=== PATIENT | male | born 1930 | race Caucasian/White ===

== ENCOUNTER 2017-03-31 11:40 | Emergency (ER) | payer MEDICARE, OTHER ==
[~2017-03-31] VITALS: Ht 157.5 cm; Wt 61.4 kg
[~2017-03-31 11:40] MED LIST: ALPR2TAB3 PO; AMMO12CR10 TOP; ASPI81TA82 PO; CHOL1TAB6 PO; DOCU1CAP39 PO; LOSA50TA PO; PAXI40TA PO; TERA5CAP3 PO; ULTR50TA PO
[2017-03-31 11:42] VITALS: BP 144/82; PULSE 82; RESP 18; TEMP 97.9; O2SAT 97
[2017-03-31 12:55] LABS: AUTOMATED NEUTROPHIL # 2.4 TH/MM3 (1.8-7.7); BASOPHIL % 0.8 % (0.0-2.0); EOSINOPHIL # 0.1 TH/MM3 (0-0.4); EOSINOPHIL % 1.6 % (0.0-4.0); HEMATOCRIT 33.1 % (39.0-51.0); HEMOGLOBIN 11.2 GM/DL (13.0-17.0); LYMPH % 16.8 % (9.0-44.0); LYMPHOCYTE # 0.6 TH/MM3 (1.0-4.8); MEAN CELL VOLUME 92.8 FL (80.0-100.0); MEAN CORPUSCULAR HEMOGLOBIN 31.4 PG (27.0-34.0); MEAN CORPUSCULAR HGB CONC 33.9 % (32.0-36.0); MEAN PLATELET VOLUME 9.6 FL (7.0-11.0); MONO % 9.4 % (0.0-8.0); MONOCYTE # 0.3 TH/MM3 (0-0.9); NEUT % 71.4 % (16.0-70.0); PLATELET COUNT 141 TH/MM3 (150-450); RED BLOOD COUNT 3.56 MIL/MM3 (4.50-5.90); RED CELL DISTRIBUTION WIDTH 14.2 % (11.6-17.2); WHITE BLOOD COUNT 3.3 TH/MM3 (4.0-11.0)
[2017-03-31 13:03] LABS: INTERNATIONAL NORMALIZED RATIO 1.1 RATIO; PROTHROMBIN TIME - PATIENT 10.7 SEC (9.8-11.6)
[2017-03-31 13:09] LABS: BILIRUBIN, URINE NEG (NEG); BLOOD, URINE NEG (NEG); GLUCOSE,URINE NEG (NEG); HYALINE CAST, URINE 4 /lpf (RARE); KETONE, URINE NEG (NEG); MUCUS URINE FEW /lpf (OCC); NITRITE,URINE NEG (NEG); PH, URINE 5.5 (5.0-8.5); SQUAMOUS EPITHELIAL CELL URINE <1 /hpf (0-5); TRANSITIONAL EPI CELLS, URINE <1 /hpf; URINE COLOR YELLOW (YELLW/STRAW); URINE LEUKOCYTE ESTERASE TRACE (NEG)
[2017-03-31 13:09] LABS: ALBUMIN 3.8 GM/DL (3.4-5.0); ALT (GPT) 31 U/L (12-78); AST (GOT) 32 U/L (15-37); BICARBONATE 26.3 MEQ/L (21.0-32.0); BLOOD UREA NITROGEN 24 MG/DL (7-18); CALCIUM 8.9 MG/DL (8.5-10.1); CHLORIDE 107 MEQ/L (98-107); CREATININE 1.02 MG/DL (0.60-1.30); GLOMERULAR FILTRATION RATE 69 ML/MIN (>89); GLUCOSE,RANDOM 93 MG/DL (74-106); LIPASE 288 U/L (73-393); SODIUM (NA) 140 MEQ/L (136-145)
[2017-03-31 13:11] LABS: ALKALINE PHOSPHATASE 98 U/L (45-117); TOTAL BILIRUBIN ADULT 0.7 MG/DL (0.2-1.0); TOTAL PROTEIN 7.8 GM/DL (6.4-8.2)
[2017-03-31] MEDS ORDERED: IOHEXOL 350 MG/ML 10 ML VIAL (for RAD DIAG) IVCONTRAST ONE (13:17)
[2017-03-31] MEDS ORDERED: TERA5CAP3 PO (15:07)
[2017-03-31] MEDS ORDERED: MULTTAB67 PO (15:07)
[2017-03-31] MEDS ORDERED: D200CAP PO (15:07)
[2017-03-31] MEDS ORDERED: LOSA100T PO (15:07)
[2017-03-31] MEDS ORDERED: ROSU1TAB4 PO (15:07)
[2017-03-31] MEDS ORDERED: OCUVTAB PO (15:07)
[2017-03-31] MEDS ORDERED: COLC0.6T PO (15:07)
[2017-03-31] MEDS ORDERED: ASPI81TA23 PO (15:07)
[2017-03-31] MEDS ORDERED: PAXI40TA9 (15:07)
[2017-03-31] MEDS ORDERED: COEN400C (15:07)
--- NOTE | 2017-03-31 15:10 | PD ---
HPI Chief Complaint: GI Complaint Time Seen by Provider: 13:51 Travel History International Travel<30 days: No Contact w/Intl Traveler<30days: No Traveled to known affect area: No History of Present Illness HPI 87-year-old male that presents to the ED for evaluation of lower GI bleed. Per patient has had painless rectal bleeding for the past couple of days. Per patient he went to an urgent care who recommended that he comes here. He denies any pain. He states that he has a history of diverticulitis in the past and feels like is the same. Per patient couple years ago he was here and he had a colonoscopy and he had resolution of his symptoms. Per patient he was given pills to make it better. he states that he is hoping for the same. Denies any nausea or vomiting. No diarrhea. Per patient and the blood is minimal. Denies taking any blood thinners other than aspirin. Denies any chest pain or shortness of breath. No urinary symptoms. No pain on the abdomen. Per patient he has not GI doctor at this time. Multiple allergies to different medications. PFSH Past Medical History Anxiety: Yes Cancer: No Cardiovascular Problems: Yes (HTN, hyperlipidemia) Coronary Artery Disease: Yes (CABG X5) Diminished Hearing: Yes (BILATERAL) Endocrine: No Genitourinary: Yes Immune Disorder: No Musculoskeletal: Yes (L KNEE REPLACEMENT) Neurologic: No Psychiatric: Yes (PTSD) Reproductive: No Respiratory: No Immunizations Current: Yes Tetanus Vaccination: Unknown ?: Not Past Surgical History Coronary Artery Bypass Graft: Yes Joint Replacement: Yes (KNEE REPLACEMENT) Pacemaker: No Other Surgery: Yes Social History Alcohol Use: Yes (2 DRINKS DAILY (2 BEERS OR 2 SHOTS WHISKEY)) Tobacco Use: No Substance Use: No Allergies-Medications (Allergen,Severity, Reaction): Coded Allergies: cilostazol (Unverified Allergy, Intermediate, 03/31/17) clarithromycin (Unverified Allergy, Intermediate, 03/31/17) clopidogrel (Unverified Allergy, Intermediate, 03/31/17) diclofenac (Unverified Allergy, Intermediate, 03/31/17) lisinopril (Unverified Allergy, Intermediate, 03/31/17) pravastatin (Unverified Allergy, Intermediate, 03/31/17) sertraline (Unverified Allergy, Intermediate, 03/31/17) Reported Meds & Prescriptions Reported Meds & Active Scripts Active Miralax Powder (Polyethylene Glycol 3350 Powder) 17 Gm Powd 17 Gm PO DAILY Mix and dissolve one measuring cap-ful (17 grams) in water or juice. Cipro (Ciprofloxacin HCl) 500 Mg Tab 500 Mg PO BID 10 Days Flagyl (Metronidazole) 500 Mg Tab 500 Mg PO BID 10 Days Reported Aspirin EC (Aspirin) 81 Mg Tabdr 81 Mg PO DAILY Losartan (Losartan Potassium) 100 Mg Tab 100 Mg PO DAILY Paxil (Paroxetine HCl) 40 Mg Tablet Multiple Vitamin 1 Tab 1 Tab PO DAILY D3 Super Strength (Cholecalciferol) 2,000 Unit Cap 1,000 Units PO DAILY Coq-10 (Coenzyme Q10 (Ubidecarenone)) 400 Mg Cap 200 Terazosin (Terazosin HCl) 5 Mg Cap 5 Mg PO HS Colcrys (Colchicine) 0.6 Mg Tab 0.6 Mg PO BID Ocuvite (Multiple Vitamins W/ Minerals) 1 Tab 1 Tab PO DAILY Rosuvastatin (Rosuvastatin Calcium) 5 Mg Tab 5 Mg PO HS Review of Systems Except as stated in HPI: all other systems reviewed are Neg Physical Exam Narrative GENERAL: SKIN: Warm and dry. HEAD: Atraumatic. Normocephalic. EYES: Pupils equal and round. No scleral icterus. No injection or drainage. ENT: No nasal bleeding or discharge. Mucous membranes pink and moist. Tongue is midline. No uvula deviation. NECK: Trachea midline. No JVD. CARDIOVASCULAR: Regular rate and rhythm. No murmurs, S3, S4. RESPIRATORY: No accessory muscle use. Clear to auscultation. Breath sounds equal bilaterally. GASTROINTESTINAL: Abdomen soft, non-tender, nondistended. Hepatic and splenic margins not palpable. Rectal exam: The wheel female nurse present. Patient has some moisés blood noted on test but patient also has what appears to be internal hemorrhoids likely stage I. No sign of external hemorrhoids or impaction. No sign of infection. MUSCULOSKELETAL: Extremities without clubbing, cyanosis, or edema. No obvious deformities. Full range of motion of the upper and lower extremities bilaterally. 2+ pulses bilaterally. NEUROLOGICAL: Awake and alert. No obvious cranial nerve deficits. Motor grossly within normal limits. Five out of 5 muscle strength in the arms and legs. Normal speech. PSYCHIATRIC: Appropriate mood and affect; insight and judgment normal. Data Data Last Documented VS Vital Signs Date Time Temp Pulse Resp B/P (MAP) Pulse Ox O2 Delivery O2 Flow Rate FiO2 03/31/17 11:42 97.9 82 18 144/82 (102) 97 Orders Orders Complete Blood Count With Diff (03/31/17 12:00) Comprehensive Metabolic Panel (03/31/17 12:00) Lipase (03/31/17 12:00) Prothrombin Time / Inr (Pt) (03/31/17 12:00) Act Partial Throm Time (Ptt) (03/31/17 12:00) Urinalysis - C+S If Indicated (03/31/17 12:00) Type And Screen (03/31/17 12:00) Electrocardiogram (03/31/17 ) Ct Abd/Pel W Iv Contrast(Rout) (03/31/17 ) Iohexol 350 Inj (Omnipaque 350 Inj) (03/31/17 13:17) Ed Discharge Order (03/31/17 16:08) Labs Laboratory Tests Test 03/31/17 12:35 03/31/17 12:46 White Blood Count 3.3 TH/MM3 Red Blood Count 3.56 MIL/MM3 Hemoglobin 11.2 GM/DL Hematocrit 33.1 % Mean Corpuscular Volume 92.8 FL Mean Corpuscular Hemoglobin 31.4 PG Mean Corpuscular Hemoglobin Concent 33.9 % Red Cell Distribution Width 14.2 % Platelet Count 141 TH/MM3 Mean Platelet Volume 9.6 FL Neutrophils (%) (Auto) 71.4 % Lymphocytes (%) (Auto) 16.8 % Monocytes (%) (Auto) 9.4 % Eosinophils (%) (Auto) 1.6 % Basophils (%) (Auto) 0.8 % Neutrophils # (Auto) 2.4 TH/MM3 Lymphocytes # (Auto) 0.6 TH/MM3 Monocytes # (Auto) 0.3 TH/MM3 Eosinophils # (Auto) 0.1 TH/MM3 Basophils # (Auto) 0.0 TH/MM3 CBC Comment DIFF FINAL Differential Comment Prothrombin Time 10.7 SEC Prothromb Time International Ratio 1.1 RATIO Activated Partial Thromboplast Time 25.9 SEC Blood Urea Nitrogen 24 MG/DL Creatinine 1.02 MG/DL Random Glucose 93 MG/DL Total Protein 7.8 GM/DL Albumin 3.8 GM/DL Calcium Level 8.9 MG/DL Alkaline Phosphatase 98 U/L Aspartate Amino Transf (AST/SGOT) 32 U/L Alanine Aminotransferase (ALT/SGPT) 31 U/L Total Bilirubin 0.7 MG/DL Sodium Level 140 MEQ/L Potassium Level 4.1 MEQ/L Chloride Level 107 MEQ/L Carbon Dioxide Level 26.3 MEQ/L Anion Gap 7 MEQ/L Estimat Glomerular Filtration Rate 69 ML/MIN Lipase 288 U/L Urine Color YELLOW Urine Turbidity CLEAR Urine pH 5.5 Urine Specific [place] 1.019 Urine Protein TRACE mg/dL Urine Glucose (UA) NEG mg/dL Urine Ketones NEG mg/dL Urine Occult Blood NEG Urine Nitrite NEG Urine Bilirubin NEG Urine Urobilinogen LESS THAN 2.0 MG/DL Urine Leukocyte Esterase TRACE Urine RBC 2 /hpf Urine WBC 4 /hpf Urine Squamous Epithelial Cells <1 /hpf Urine Transitional Epithelial Cells <1 /hpf Urine Hyaline Casts 4 /lpf Urine Mucus FEW /lpf Microscopic Urinalysis Comment CULT NOT INDICATED MDM Medical Decision Making Medical Screen Exam Complete: Yes Emergency Medical Condition: Yes Medical Record Reviewed: Yes Interpretation(s) CBC & BMP Diagram 03/31/17 12:35 Total Protein 7.8, Albumin 3.8, Calcium Level 8.9, Alkaline Phosphatase 98, Aspartate Amino Transf (AST/SGOT) 32, Alanine Aminotransferase (ALT/SGPT) 31, Total Bilirubin 0.7 coags WNL Last Impressions Abdomen/Pelvis CT 03/31/17 0000 Signed Impressions: Service Date/Time: Friday, March 31, 2017 15:15 - CONCLUSION: 1. 4.5 cm infrarenal abdominal aortic aneurysm. 2. There is a moderate amount of stool within the ascending colon as well the sigmoid colon. There are scattered diverticuli but no definite inflammatory changes to indicate acute diverticulitis. 3. There are 3 small simple cysts within the liver. 4. Advanced degenerative changes within the lumbar spine. 5. Note is made of densely calcified atherosclerotic plaque in the mid segment of the SMA. Wiley Drew MD Differential Diagnosis Rectal bleeding versus lower GI bleed versus hemorrhoids versus diverticulitis Narrative Course 87-year-old male that presents to the ED for evaluation of rectal bleeding. Patient was properly examined and was found to have signs and symptoms concerning for hemorrhoids versus diverticulitis. Labs and imaging ordered. Labs and imaging were essentially unremarkable other than what appears to be moderate amount of stool on the CAT scan as well as a AAA that is not dissecting as well as no acute findings of diverticulitis was still possible. At this time will be treated as diverticulitis. From history and physical this is more likely internal hemorrhoids. Recommend close follow with GI. Patient was given information for local GI doctor. Patient was told that if anything worsens she is to come back. He will be started on Flagyl and Cipro to cover for diverticulitis which is still possible. Given a prescription for MiraLAX. Told to drink plenty of fluids. Follow with PCP. See ED worsening symptoms. [facility] Point of Care Internal Pos. & Neg. Controls: Passed Fecal Specimen Occult Blood: Positive Diagnosis Primary Impression: Lower GI bleed Additional Impression: Diverticulitis large intestine Qualified Codes: K57.33 - Diverticulitis of large intestine without perforation or abscess with bleeding Referrals: Bakari Sanchez MD, Saud El-sayed MD Patient Instructions: General Instructions Additional Instructions: Take medications as prescribed. Follow with PCP. See ED for worsening symptoms. You have an Abdominal aorta aneurysm of 4.5 cm that needs to be monitored by your doctors. Med/Other Pt SpecificInfo: Prescription(s) given Scripts Polyethylene Glycol 3350 Powder (Miralax Powder) 17 Gm Powd 17 GM PO DAILY for Constipation, #1 CAN 3 Refills Mix and dissolve one measuring cap-ful (17 grams) in water or juice. Prov: Dean Hernandez MD 03/31/17 Ciprofloxacin (Cipro) 500 Mg Tab 500 MG PO BID for Infection for 10 Days, #20 TAB 0 Refills Prov: Dean Hernandez MD 03/31/17 Metronidazole (Flagyl) 500 Mg Tab 500 MG PO BID for Infection for 10 Days, #20 TAB 0 Refills Prov: Dean Hernandez MD 03/31/17 Disposition: 01 DISCHARGE HOME Condition: Stable Brant Huff Mar 31, 2017 15:10
--- NOTE | 2017-03-31 15:47 | RADRPT ---
EXAM DATE/TIME: 03/31/2017 15:15 [facility] COMPARISON: No previous studies available for comparison. INDICATIONS : Lower abdominal pain with blood in stool. IV CONTRAST: 95 cc Omnipaque 350 (iohexol) IV ORAL CONTRAST: No oral contrast ingested. RADIATION DOSE: 6.67 CTDIvol (mGy) MEDICAL HISTORY : Cardiovascular disease. Diverticulitis. SURGICAL HISTORY : CABG ENCOUNTER: Initial ACUITY: 4 - 6 days PAIN SCALE: 5/10 LOCATION: Bilateral lower quadrant TECHNIQUE: Volumetric scanning of the abdomen and pelvis was performed. Using automated exposure control and ad justment of the mA and/or kV according to patient size, radiation dose was kept as low as reasonably achievable to obtain optimal diagnostic quality images. DICOM format image data is available electro nically for review and comparison. FINDINGS: The limited portion of the lung base visualized demonstrate COPD changes. There is a 6 mm nodule evid ent within the left lower lobe. Examination of the liver demonstrates 3 low attenuation lesions within the liver. The largest measure s 1.7 cm. These are most compatible with benign simple cysts. The spleen, pancreas, adrenal glands and kidneys are intact. Examination of the abdominal aorta demonstrates a 4.5 cm infrarenal abdominal aortic aneurysm. There is no retroperitoneal lymphadenopathy. The visualized loops of small and large bowel demonstrate a moderate amount of stool within the adjac ent colon but are otherwise intact. There is no free fluid within the pelvis. No iliac or inguinal adenopathy is seen. No free air or ashley e fluid is present. There are diverticuli diffusely throughout the sigmoid colon but no definite infl ammatory changes. The prostate is mildly enlarged. There are advanced degenerative changes throughout the lumbar spine. CONCLUSION: 1. 4.5 cm infrarenal abdominal aortic aneurysm. 2. There is a moderate amount of stool within the ascending colon as well the sigmoid colon. There ar e scattered diverticuli but no definite inflammatory changes to indicate acute diverticulitis. 3. There are 3 small simple cysts within the liver. 4. Advanced degenerative changes within the lumbar spine. 5. Note is made of densely calcified atherosclerotic plaque in the mid segment of the SMA. Wiley Drew MD on March 31, 2017 at 15:38 Board Certified Radiologist. This report was verified electronically.
[2017-03-31] MEDS ORDERED: METR-1 PO (16:08)
[2017-03-31] MEDS ORDERED: MIRA3350 PO (16:08)
[2017-03-31] MEDS ORDERED: CIPR-9 PO (16:08)
--- NOTE | 2017-04-01 19:34 | EKG ---
Date Performed: 03/31/2017 Time Performed: 12:37:07 PTAGE: 87 years EKG: Sinus rhythm WITH FIRST DEGREE AV BLOCK ST DEVIATION AND MODERATE T-WAVE ABNORMALITY, CONSIDER LATERAL ISCHEMIA. When compared to previous tracing, there has been an increase in The lateral T wave changes, but no o ther significant serial Change. ABNORMAL ECG PREVIOUS TRACING : 06/05/2014 10.37 DOCTOR: Salima Nunez Interpretating Date/Time 04/01/2017 19:33:07
== END 2017-03-31 16:41 | disposition home or self-care (01) ==
LOC: NEPE 11:40
DX: K92.2 Gastrointestinal hemorrhage, unspecified (principal); K57.32 Diverticulitis of large intestine without perforation or abscess without bleeding; R94.31 Abnormal electrocardiogram [ECG] [EKG]; I10 Essential (primary) hypertension; E78.5 Hyperlipidemia, unspecified
CPT/HCPCS: 74177; 80053; 81001; 83690; 85025; 85610; 85730; 86850; 86900; 86901; 93005; 99285; Q9967

== ENCOUNTER 2017-04-02 11:12 | Inpatient (IN) | payer MEDICARE, OTHER ==
[~2017-04-02] VITALS: Ht 157.5 cm; Wt 74.7 kg
[~2017-04-02 11:12] MED LIST changes: -ALPR2TAB3 PO; -AMMO12CR10 TOP; +ASPI81TA23 PO; -ASPI81TA82 PO; -CHOL1TAB6 PO; +CIPR-9 PO; +COEN400C; +COLC0.6T PO; +D200CAP PO; -DOCU1CAP39 PO; +LOSA100T PO; -LOSA50TA PO; +METR-1 PO; +MIRA3350 PO; +MULTTAB67 PO; +OCUVTAB PO; -PAXI40TA PO; +PAXI40TA9; +ROSU1TAB4 PO; -ULTR50TA PO
[2017-04-02 11:17] VITALS: BP 124/59; PULSE 80; RESP 17; TEMP 97.9; O2SAT 99
[2017-04-02 12:05] LABS: AUTOMATED NEUTROPHIL # 2.7 TH/MM3 (1.8-7.7); BASOPHIL % 0.5 % (0.0-2.0); EOSINOPHIL % 1.4 % (0.0-4.0); HEMATOCRIT 28.8 % (39.0-51.0); HEMOGLOBIN 9.4 GM/DL (13.0-17.0); LYMPH % 15.2 % (9.0-44.0); LYMPHOCYTE # 0.5 TH/MM3 (1.0-4.8); MEAN CORPUSCULAR HEMOGLOBIN 29.8 PG (27.0-34.0); MEAN CORPUSCULAR HGB CONC 32.8 % (32.0-36.0); MEAN PLATELET VOLUME 8.4 FL (7.0-11.0); MONO % 8.9 % (0.0-8.0); MONOCYTE # 0.3 TH/MM3 (0-0.9); PLATELET COUNT 144 TH/MM3 (150-450); RED BLOOD COUNT 3.17 MIL/MM3 (4.50-5.90); RED CELL DISTRIBUTION WIDTH 13.7 % (11.6-17.2); WHITE BLOOD COUNT 3.5 TH/MM3 (4.0-11.0)
[2017-04-02 12:15] LABS: CHLORIDE 104 MEQ/L (98-107); SODIUM (NA) 138 MEQ/L (136-145)
[2017-04-02 12:18] LABS: CALCIUM 8.4 MG/DL (8.5-10.1)
[2017-04-02 12:19] LABS: ALBUMIN 3.2 GM/DL (3.4-5.0); BICARBONATE 26.7 MEQ/L (21.0-32.0); BLOOD UREA NITROGEN 28 MG/DL (7-18); GLUCOSE,RANDOM 128 MG/DL (74-106); INTERNATIONAL NORMALIZED RATIO 1.1 RATIO; PROTHROMBIN TIME - PATIENT 11.4 SEC (9.8-11.6)
[2017-04-02 12:22] LABS: ALT (GPT) 26 U/L (12-78); AST (GOT) 38 U/L (15-37); GLOMERULAR FILTRATION RATE 57 ML/MIN (>89)
[2017-04-02 12:23] LABS: TOTAL BILIRUBIN ADULT 0.4 MG/DL (0.2-1.0); TOTAL PROTEIN 6.8 GM/DL (6.4-8.2)
[2017-04-02 12:25] LABS: ALKALINE PHOSPHATASE 80 U/L (45-117)
--- NOTE | 2017-04-02 12:38 | PD ---
HPI Chief Complaint: GI Complaint Time Seen by Provider: 11:23 Travel History International Travel<30 days: No Contact w/Intl Traveler<30days: No Traveled to known affect area: No History of Present Illness HPI This is an 87-year-old male who presents to the emergency department with bleeding from his rectum, constant, moderate severity having 3-4 episodes per day over the past week associated with lightheadedness and dizziness. The patient has a history of diverticulosis in the past. He does not follow with the GI doctor. PFSH Past Medical History Anxiety: Yes Cardiovascular Problems: Yes (HTN, hyperlipidemia) Coronary Artery Disease: Yes (CABG X5) Diminished Hearing: Yes (BILATERAL) Endocrine: No Gout: Yes Genitourinary: Yes Hypertension: Yes Immune Disorder: No Implanted Vascular Access Dvce: Yes Musculoskeletal: Yes (L KNEE REPLACEMENT) Neurologic: No Psychiatric: Yes (PTSD) Reproductive: No Respiratory: No Immunizations Current: Yes Tetanus Vaccination: < 5 Years Influenza Vaccination: Yes Past Surgical History Coronary Artery Bypass Graft: Yes Joint Replacement: Yes (KNEE REPLACEMENT) Pacemaker: No Other Surgery: Yes Social History Alcohol Use: Yes (2 DRINKS DAILY (2 BEERS OR 2 SHOTS WHISKEY) not any more) Tobacco Use: No Substance Use: No Allergies-Medications (Allergen,Severity, Reaction): Coded Allergies: cilostazol (Unverified Allergy, Intermediate, 04/02/17) clarithromycin (Unverified Allergy, Intermediate, 04/02/17) clopidogrel (Unverified Allergy, Intermediate, 04/02/17) diclofenac (Unverified Allergy, Intermediate, 04/02/17) lisinopril (Unverified Allergy, Intermediate, 04/02/17) pravastatin (Unverified Allergy, Intermediate, 04/02/17) sertraline (Unverified Allergy, Intermediate, 04/02/17) Reported Meds & Prescriptions Reported Meds & Active Scripts Active Miralax Powder (Polyethylene Glycol 3350 Powder) 17 Gm Powd 17 Gm PO DAILY Mix and dissolve one measuring cap-ful (17 grams) in water or juice. Cipro (Ciprofloxacin HCl) 500 Mg Tab 500 Mg PO BID 10 Days Flagyl (Metronidazole) 500 Mg Tab 500 Mg PO BID 10 Days Reported Aspirin EC (Aspirin) 81 Mg Tabdr 81 Mg PO DAILY Losartan (Losartan Potassium) 100 Mg Tab 100 Mg PO DAILY Paxil (Paroxetine HCl) 40 Mg Tablet Multiple Vitamin 1 Tab 1 Tab PO DAILY D3 Super Strength (Cholecalciferol) 2,000 Unit Cap 1,000 Units PO DAILY Coq-10 (Coenzyme Q10 (Ubidecarenone)) 400 Mg Cap 200 Terazosin (Terazosin HCl) 5 Mg Cap 5 Mg PO HS Colcrys (Colchicine) 0.6 Mg Tab 0.6 Mg PO BID Ocuvite (Multiple Vitamins W/ Minerals) 1 Tab 1 Tab PO DAILY Rosuvastatin (Rosuvastatin Calcium) 5 Mg Tab 5 Mg PO HS Review of Systems Except as stated in HPI: all other systems reviewed are Neg Physical Exam Narrative GENERAL:Well appearing, no acute distress SKIN: Pale HEAD: Atraumatic. Normocephalic. EYES: Pupils equal and round. No injection or drainage. ENT: Moist mucous membranes NECK: Trachea midline. CARDIOVASCULAR: Regular rate and rhythm. No murmur appreciated. RESPIRATORY: Clear to auscultation. Breath sounds equal bilaterally. GASTROINTESTINAL: Abdomen soft, non-tender, nondistended. MUSCULOSKELETAL: No obvious deformities. NEUROLOGICAL: Awake and alert. No obvious cranial nerve deficits. Moving all extremities. PSYCHIATRIC: Appropriate mood and affect; insight and judgment normal. Data Data Last Documented VS Vital Signs Date Time Temp Pulse Resp B/P (MAP) Pulse Ox O2 Delivery O2 Flow Rate FiO2 04/02/17 11:17 97.9 80 17 124/59 (80) 99 Orders Orders Complete Blood Count With Diff (04/02/17 11:23) Comprehensive Metabolic Panel (04/02/17 11:23) Act Partial Throm Time (Ptt) (04/02/17 11:23) Prothrombin Time / Inr (Pt) (04/02/17 11:23) Labs Laboratory Tests Test 04/02/17 11:55 White Blood Count 3.5 TH/MM3 Red Blood Count 3.17 MIL/MM3 Hemoglobin 9.4 GM/DL Hematocrit 28.8 % Mean Corpuscular Volume 91.0 FL Mean Corpuscular Hemoglobin 29.8 PG Mean Corpuscular Hemoglobin Concent 32.8 % Red Cell Distribution Width 13.7 % Platelet Count 144 TH/MM3 Mean Platelet Volume 8.4 FL Neutrophils (%) (Auto) 74.0 % Lymphocytes (%) (Auto) 15.2 % Monocytes (%) (Auto) 8.9 % Eosinophils (%) (Auto) 1.4 % Basophils (%) (Auto) 0.5 % Neutrophils # (Auto) 2.7 TH/MM3 Lymphocytes # (Auto) 0.5 TH/MM3 Monocytes # (Auto) 0.3 TH/MM3 Eosinophils # (Auto) 0.0 TH/MM3 Basophils # (Auto) 0.0 TH/MM3 CBC Comment DIFF FINAL Differential Comment Prothrombin Time 11.4 SEC Prothromb Time International Ratio 1.1 RATIO Activated Partial Thromboplast Time 26.1 SEC Blood Urea Nitrogen 28 MG/DL Creatinine 1.20 MG/DL Random Glucose 128 MG/DL Total Protein 6.8 GM/DL Albumin 3.2 GM/DL Calcium Level 8.4 MG/DL Alkaline Phosphatase 80 U/L Aspartate Amino Transf (AST/SGOT) 38 U/L Alanine Aminotransferase (ALT/SGPT) 26 U/L Total Bilirubin 0.4 MG/DL Sodium Level 138 MEQ/L Potassium Level 4.0 MEQ/L Chloride Level 104 MEQ/L Carbon Dioxide Level 26.7 MEQ/L Anion Gap 7 MEQ/L Estimat Glomerular Filtration Rate 57 ML/MIN [facility] Medical Decision Making Medical Screen Exam Complete: Yes Emergency Medical Condition: Yes Medical Record Reviewed: Yes (Patient was seen here at [facility] in 2014 and had a lower GI bleed attributed to diverticulosis) Differential Diagnosis Diverticulosis, hemorrhoids, colitis, AVM, anemia Narrative Course This is an 87-year-old male who presents to the emergency department with lower GI bleeding that has been going on for 1 week. His hemoglobin is 9.4 which is lower than 11.2 which it was in March. He is symptomatic with fatigue and lightheadedness. He is placed in a monitor and an IV was established. Patient will be admitted for serial hemoglobins and GI evaluation. Diagnosis Primary Impression: Lower GI bleed Admitting Information Admitting Physician Requests: Admit Mary Caldera MD Apr 02, 2017 12:38
[2017-04-02] MEDS ORDERED: PEG (High)/E-LYTE SOLN 4000 ML BTL PO ONE (14:30)
[2017-04-02] MEDS ORDERED: SODIUM CHLORIDE 0.9% FLUSH 10 ML FLUSH IV FLUSH PRN (14:45)
--- NOTE | 2017-04-02 14:48 | HHI.HP ---
[facility] Service [place] [facility] Primary Care Physician Non-Staff Admission Diagnosis lower gi bleed Diagnoses: Chief Complaint: Gastrointestinal bleeding Travel History International Travel<30 Days: No Contact w/Intl Traveler <30 Da: No Traveled to Known Affected Are: No History of Present Illness This patient is a 87-year-old gentleman with bleeding from his rectum which I think intermittent over the last week. He says he has some mild and intermittent left lower quadrant pain and an associated lightheadedness with dizziness. The pain is improved with bowel movements. Patient did come to the emergency room several days ago and had a hemoglobin of over 11 has gone down to 9. Patient is reported to the emergency for further evaluation of this. Review of Systems Constitutional: DENIES: Diaphoretic episodes, Fatigue, Fever, Weight gain, Weight loss, Chills, Dizziness, Change in appetite, Night Sweats Endocrine: DENIES: Heat/cold intolerance, Polydipsia, Polyuria, Polyphagia Eyes: DENIES: Blurred vision, Diplopia, Eye inflammation, Eye pain, Vision loss , Photosensitivity, Double Vision Ears, nose, mouth, throat: DENIES: Tinnitus, Hearing loss, Vertigo, Nasal discharge, Oral lesions, Throat pain, Hoarseness, Ear Pain, Running Nose, Epistaxis, Sinus Pain, Toothache, Odynophagia Respiratory: DENIES: Apneas, Cough, Snoring, Wheezing, Hemoptysis, Sputum production, Shortness of breath Cardiovascular: DENIES: Chest pain, Palpitations, Syncope, Dyspnea on Exertion , PND, Lower Extremity Edema, Orthopnea, Claudication Gastrointestinal: COMPLAINS OF: Abdominal pain (left lower quadrant), Bloody stools, DENIES: Black stools, Constipation, Diarrhea, Nausea, Vomiting, Difficulty Swallowing, Anorexia Genitourinary: DENIES: Sexual dysfunction, Urinary frequency, Urinary incontinence, Urgency, Hematuria, Dysuria, Nocturia, Penile Discharge, Testicular Pain, Testicular Swelling Musculoskeletal: DENIES: Joint pain, Muscle aches, Stiffness, Joint Swelling, Back pain, Neck pain Integumentary: DENIES: Abnormal pigmentation, Nail changes, Pruritus, Rash Immunologic/allergic: DENIES: Eczema, Urticaria Neurologic: DENIES: Abnormal gait, Headache, Localized weakness, Paresthesias, Seizures, Speech Problems, Tremor, Poor Balance Psychiatric: DENIES: Anxiety, Confusion, Mood changes, Depression, Hallucinations, Agitation, Suicidal Ideation, Homicidal Ideation, Delusions Except as stated in HPI: all other systems reviewed are Neg Past Family Social History Past Medical History Coronary artery disease Hypertension Hyperlipidemia Past Surgical History Coronary artery bypass and graft Left knee replacement Reported Medications Reviewed in the EMR Allergies: Coded Allergies: cilostazol (Unverified Allergy, Intermediate, 04/02/17) clarithromycin (Unverified Allergy, Intermediate, 04/02/17) clopidogrel (Unverified Allergy, Intermediate, 04/02/17) diclofenac (Unverified Allergy, Intermediate, 04/02/17) lisinopril (Unverified Allergy, Intermediate, 04/02/17) pravastatin (Unverified Allergy, Intermediate, 04/02/17) sertraline (Unverified Allergy, Intermediate, 04/02/17) Active Ordered Medications reviewed in the EMR Family History Father from a heart attack in his 50s, brother from in his 70s from heart attack and mother from a heart attack Social History Quit tobacco over 40 years ago, alcohol daily, lives alone and lives primarily in [place] Physical Exam Vital Signs Vital Signs Date Time Temp Pulse Resp B/P (MAP) Pulse Ox O2 Delivery O2 Flow Rate FiO2 04/02/17 11:17 97.9 80 17 124/59 (80) 99 Physical Exam GENERAL: This is a well-nourished, well-developed patient, in no apparent distress. SKIN: No rashes, ecchymoses or lesions. Cool and dry. HEAD: Atraumatic. Normocephalic. No temporal or scalp tenderness. EYES: Pupils equal round and reactive. Extraocular motions intact. No scleral icterus. No injection or drainage. ENT: Nose without bleeding, purulent drainage or septal hematoma. Throat without erythema, tonsillar hypertrophy or exudate. Uvula midline. Airway patent. NECK: Trachea midline. No JVD or lymphadenopathy. Supple, nontender, no meningeal signs. CARDIOVASCULAR: Regular rate and rhythm without murmurs, gallops, or rubs. RESPIRATORY: Clear to auscultation. Breath sounds equal bilaterally. No wheezes , rales, or rhonchi. GASTROINTESTINAL: Abdomen soft, non-tender, nondistended. No hepato-splenomegaly , or palpable masses. No guarding. MUSCULOSKELETAL: Extremities without clubbing, cyanosis, or edema. No joint tenderness, effusion, or edema noted. No calf tenderness. Negative Homans sign bilaterally. NEUROLOGICAL: Awake and alert. Cranial nerves II through XII intact. Motor and sensory grossly within normal limits. Five out of 5 muscle strength in all muscle groups. Normal speech. Laboratory Laboratory Tests Test 04/02/17 11:55 White Blood Count 3.5 Red Blood Count 3.17 Hemoglobin 9.4 Hematocrit 28.8 Mean Corpuscular Volume 91.0 Mean Corpuscular Hemoglobin 29.8 Mean Corpuscular Hemoglobin Concent 32.8 Red Cell Distribution Width 13.7 Platelet Count 144 Mean Platelet Volume 8.4 Neutrophils (%) (Auto) 74.0 Lymphocytes (%) (Auto) 15.2 Monocytes (%) (Auto) 8.9 Eosinophils (%) (Auto) 1.4 Basophils (%) (Auto) 0.5 Neutrophils # (Auto) 2.7 Lymphocytes # (Auto) 0.5 Monocytes # (Auto) 0.3 Eosinophils # (Auto) 0.0 Basophils # (Auto) 0.0 CBC Comment DIFF FINAL Differential Comment Prothrombin Time 11.4 Prothromb Time International Ratio 1.1 Activated Partial Thromboplast Time 26.1 Blood Urea Nitrogen 28 Creatinine 1.20 Random Glucose 128 Total Protein 6.8 Albumin 3.2 Calcium Level 8.4 Alkaline Phosphatase 80 Aspartate Amino Transf (AST/SGOT) 38 Alanine Aminotransferase (ALT/SGPT) 26 Total Bilirubin 0.4 Sodium Level 138 Potassium Level 4.0 Chloride Level 104 Carbon Dioxide Level 26.7 Anion Gap 7 Estimat Glomerular Filtration Rate 57 Result Diagram: 04/02/17 1155 04/02/17 1155 Septic Shock Reassessment Septic shock perfusion: reassessment completed Caprini VTE Risk Assessment Caprini VTE Risk Assessment: Mod/High Risk (score >= 2) VTE Pharm Contraindication: Active bleeding Caprini Risk Assessment Model Point Value = 1 Point Value = 2 Point Value = 3 Point Value = 5 Age 41-60 Minor surgery BMI > 25 kg/m2 Swollen legs Varicose veins or History of unexplained or recurrent spontaneous Oral contraceptives or hormone replacement Sepsis (< 1 month) Serious lung disease, including pneumonia (< 1 month) Abnormal pulmonary function Acute myocardial infarction Congestive heart failure (< 1 month) History of inflammatory bowel disease Medical patient at bed rest Age 61-74 Arthroscopic surgery Major open surgery (> 45 min) Laparoscopic surgery (> 45 min) Malignancy Confined to bed (> 72 hours) Immobilizing plaster cast Central venous access Age >= 75 History of VTE Family history of VTE Factor V Leiden Prothrombin [id number] Lupus anticoagulant Anticardiolipin antibodies Elevated serum homocysteine Heparin-induced thrombocytopenia Other congenital or acquired thrombophilia Stroke (< 1 month) Elective arthroplasty Hip, pelvis, or leg fracture Acute spinal cord injury (< 1 month) Prophylaxis Regimen Total Risk Factor Score Risk Level Prophylaxis Regimen 0-1 Low Early ambulation 2 Moderate Order ONE of the following: *Sequential Compression Device (SCD) *Heparin 5000 units SQ BID 3-4 Higher Order ONE of the following medications: *Heparin 5000 units SQ TID *Enoxaparin/Lovenox 40 mg SQ daily (WT < 150 kg, CrCl > 30 mL/min) *Enoxaparin/Lovenox 30 mg SQ daily (WT < 150 kg, CrCl > 10-29 mL/min) *Enoxaparin/Lovenox 30 mg SQ BID (WT < 150 kg, CrCl > 30 mL/min) AND/OR *Sequential Compression Device (SCD) 5 or more Highest Order ONE of the following medications: *Heparin 5000 units SQ TID (Preferred with Epidurals) *Enoxaparin/Lovenox 40 mg SQ daily (WT < 150 kg, CrCl > 30 mL/min) *Enoxaparin/Lovenox 30 mg SQ daily (WT < 150 kg, CrCl > 10-29 mL/min) *Enoxaparin/Lovenox 30 mg SQ BID (WT < 150 kg, CrCl > 30 mL/min) AND *Sequential Compression Device (SCD) Assessment and Plan Problem List: (1) Lower GI bleed ICD Code: K92.2 - Lower GI bleed Status: Acute Plan: Patient will need endoscopy Follow-up repeat hemoglobin in a.m. Transfuse as needed (2) Hypertension ICD Code: I10 - Hypertension Status: Acute Plan: Currently controlled on home medications which we will continue (3) Coronary artery disease ICD Code: I25.10 - Coronary artery disease Status: Acute Plan: No evidence of change at this time however the threshold for transfusion will be considered given the patient's coronary disease Physician Certification 2 Midnight Certification Type: Admission for Inpatient Services Order for Inpatient Services The services are ordered in accordance with Medicare regulations or non- Medicare payer requirements, as applicable. In the case of services not specified as inpatient-only, they are appropriately provided as inpatient services in accordance with the 2-midnight benchmark. Estimated LOS (days): 2 2 days is the estimated time the patient will need to remain in the hospital, assuming treatment plan goals are met and no additional complications. Post-Hospital Plan: Araceli Dumont MD Apr 02, 2017 14:48
[2017-04-02 16:00] VITALS: BP 136/81; PULSE 72; RESP 18; TEMP 98.7; O2SAT 96
[2017-04-02 20:00] VITALS: BP 162/95; PULSE 88; RESP 17; TEMP 98; O2SAT 92
[2017-04-02 22:17] LABS: HEMATOCRIT 27.4 % (39.0-51.0); HEMOGLOBIN 8.8 GM/DL (13.0-17.0)
[2017-04-02] MEDS: TERAZOSIN HCL 5 MG CAP PO SCH (22:23)
[2017-04-02] MEDS: SODIUM CHLORIDE 0.9% FLUSH 10 ML FLUSH IV FLUSH SCH (22:24)
[2017-04-02] MEDS: ATORVASTATIN 10 MG TAB PO SCH (22:24)
[2017-04-03] VITALS (8 sets, daily range): BP systolic 139–165; BP diastolic 67–90; PULSE 69–85; RESP 16–20; TEMP 97.1–98.1; O2SAT 94–98
[2017-04-03] MEDS ORDERED: LACTATED RINGER'S 1000 ML IV PRN (03:45)
[2017-04-03] MEDS ORDERED: POVIDONE IODINE 5% (ANTISEPSIS KIT) 4 APPLICATIONS EACH NARE PRN (03:45)
--- NOTE | 2017-04-03 05:43 | MB ---
cc: MAUREEN NDIAYE M.D. DATE OF CONSULTATION 04/02/2017 DATE OF [address] Slaughter REASON FOR CONSULTATION Lower GI bleed. HISTORY OF PRESENT ILLNESS Mr. Marquez is a very pleasant, 87-year-old gentleman who came to the emergency room with complaints of rectal bleeding going on since the . The patient denies any nausea, vomiting, abdominal pain, constipation, diarrhea, dysphagia or odynophagia. He had a similar episode a year ago and was found to have GI bleed secondary to diverticulosis. The patient stated he had a colonoscopy a year ago and nothing unusual was found other than diverticulosis. He denies any weight loss, NSAID use at home. PAST MEDICAL HISTORY 1. Decreased hearing. 2. Coronary artery disease. 3. Hypertension. 4. Hyperlipidemia. PAST SURGICAL HISTORY 1. CABG. 2. Left knee replacement. ALLERGIES CILOSTAZOL. CLARITHROMYCIN. PLAVIX. BACLOFEN. LISINOPRIL. PRAVASTATIN. SERTRALINE. FAMILY HISTORY Denies any family history of colon cancer or any other GI pathology. SOCIAL HISTORY He quit smoking 40 years ago. Drinks alcohol daily. MEDICATIONS IN THE HOSPITAL He was started on - 1. Losartan. 2. Hytrin. 3. Lipitor. REVIEW OF SYSTEMS GENERAL: He denies any fever or chills, weight loss or weight gain. ENT: No alteration in baseline hearing or visual acuity PULMONARY: Denies any chest pain, shortness of breath. GASTROINTESTINAL: As above. GENITOURINARY: Denies dysuria, hematuria. HEMATOLOGICAL: No history of anemia or bleeding disorder. SKIN: No alteration in baseline skin lesion. NEUROLOGICAL: No history of TIA or CVA kind of symptoms. PHYSICAL EXAMINATION GENERAL: On clinical exam he is sitting comfortably in bed in no acute distress. VITAL SIGNS: His vitals are stable. Temperature 97.9, heart rate 80, blood pressure 124/59. HEENT: PERRLA. NECK: No JVD. No lymphadenopathy. CHEST: Clear to the auscultation and palpation. CARDIOVASCULAR: S1, S2. No murmur. ABDOMEN: Soft, nontender. Bowel sounds are present. SUPPORT CLERK: Awake, alert, oriented x 3. No focal signs identified. RECTAL: Examination was performed and no blood was noted at this point. LABORATORY DATA His white count is 3.5, hemoglobin of 9.4, platelets 144. His PT/INR is normal. His CMP is normal except glucose 128. IMAGING STUDIES CT abdomen and pelvis which was done on the of this month showed an aortic aneurysm which is approximately 4.5 cm, as per him is stable. He is followed closely in [place]. Also a cyst in the liver and some diverticulosis. IMPRESSION GI bleed most likely secondary to diverticulosis. Hemoglobin is stable. No indication of active bleed at this time. RECOMMENDATIONS 1. Monitor H&H closely. 2. Transfuse p.r.n. to keep hemoglobin more than 8. 3. Type and screen. 4. Upper endoscopy and colonoscopy will be scheduled in the morning. 5. If active bleeding, please order bleeding scan STAT. I would like to thank Dr. Slaughter for referring him to our office for consultation. The risks and benefits of the above procedures were discussed with the patient and he is agreeing with it. Thank you again. We will continue to follow the patient along with you. Maureen Ndiaye MD BSB/LAUREN /5:35 PM /5:25 AM MINO
[2017-04-03 06:14] LABS: AUTOMATED NEUTROPHIL # 1.7 TH/MM3 (1.8-7.7); BASOPHIL % 0.8 % (0.0-2.0); EOSINOPHIL # 0.1 TH/MM3 (0-0.4); HEMATOCRIT 24.3 % (39.0-51.0); HEMOGLOBIN 7.8 GM/DL (13.0-17.0); LYMPH % 23.7 % (9.0-44.0); LYMPHOCYTE # 0.7 TH/MM3 (1.0-4.8); MEAN CELL VOLUME 91.8 FL (80.0-100.0); MEAN CORPUSCULAR HEMOGLOBIN 29.6 PG (27.0-34.0); MEAN CORPUSCULAR HGB CONC 32.3 % (32.0-36.0); MEAN PLATELET VOLUME 9.1 FL (7.0-11.0); MONOCYTE # 0.4 TH/MM3 (0-0.9); NEUT % 59.5 % (16.0-70.0); PLATELET COUNT 120 TH/MM3 (150-450); RED BLOOD COUNT 2.64 MIL/MM3 (4.50-5.90); RED CELL DISTRIBUTION WIDTH 13.8 % (11.6-17.2); WHITE BLOOD COUNT 2.9 TH/MM3 (4.0-11.0)
[2017-04-03] MEDS ORDERED: SODIUM CHLOR 0.9% 250 ML INJ 250 ML IV ONE (09:00)
[2017-04-03] MEDS ORDERED: FUROSEMIDE 20 MG/2 ML VIAL IV PUSH ONE (09:00)
[2017-04-03] MEDS ORDERED: diphenhydrAMINE HCL 25 MG CAP PO PRN (09:00)
[2017-04-03] MEDS ORDERED: ACETAMINOPHEN 325 MG TAB PO PRN (09:00)
[2017-04-03] MEDS: LOSARTAN 50 MG TAB PO SCH (09:49)
[2017-04-03] MEDS: SODIUM CHLORIDE 0.9% FLUSH 10 ML FLUSH IV FLUSH SCH ×2 (09:50→21:39)
--- NOTE | 2017-04-03 12:52 | HHI.PR ---
Subjective Remarks Patient seen today in follow-up for GI bleed. Hemoglobin has dropped to 7.8. Patient expected for endoscopy later today. He describes some bloody stools overnight with the bowel prep. He is pale today Objective Vitals Vital Signs Date Time Temp Pulse Resp B/P (MAP) Pulse Ox O2 Delivery O2 Flow Rate FiO2 04/03/17 12:00 97.4 85 20 139/70 (93) 98 04/03/17 08:00 97.1 70 20 157/79 (105) 98 04/03/17 00:00 97.9 85 16 148/90 (109) 94 04/02/17 20:00 98.0 88 17 162/95 (117) 92 04/02/17 16:00 98.7 72 18 136/81 (99) 96 I/O 04/02/17 04/02/17 04/02/17 04/03/17 04/03/17 04/03/17 07:00 15:00 23:00 07:00 15:00 23:00 Intake Total 500 ml Balance 500 ml Intake Oral 500 ml # Bowel Movements 4 Result Diagram: 04/03/17 0555 04/02/17 1155 Objective Remarks GENERAL: This is a well-nourished, well-developed patient, pale CARDIOVASCULAR: Regular rate and rhythm without murmurs, gallops, or rubs. RESPIRATORY: Clear to auscultation. Breath sounds equal bilaterally. No wheezes , rales, or rhonchi. GASTROINTESTINAL: Abdomen soft, non-tender, nondistended. Normal active bowel sounds MUSCULOSKELETAL: Extremities without clubbing, cyanosis, or edema. NEURO: Alert & Oriented x4 to person, place, time, situation. Moves all ext x4 A/P Problem List: (1) Lower GI bleed ICD Code: K92.2 - Lower GI bleed Status: Acute Plan: Appears to be lower GI Patient will receive 1 unit packed red blood cells today for hemoglobin of 7.8 in the setting of GI bleeding with acute blood loss and with coronary artery disease For endoscopy this afternoon (2) Hypertension ICD Code: I10 - Hypertension Status: Acute Plan: Currently controlled on home medications which we will continue (3) Coronary artery disease ICD Code: I25.10 - Coronary artery disease Status: Acute Plan: Continue home medications Discharge Planning Pending endoscopy Araceli Slaughter MD Apr 03, 2017 12:52
--- NOTE | 2017-04-03 14:13 | GIPROC ---
[address], [address] EGD PROCEDURE REPORT EXAM DATE: 04/03/2017 PATIENT NAME: Con Marquez MR #: [id number] BIRTHDATE: 1930 ATTENDING: Maureen Lange MD ORDER #: [id number] BRAKE OPERATOR SHEET METAL: Jon Gan Dan STATUS: inpatient INDICATIONS: The patient is a 87 yr old male here for an EGD due to gi bleeding PROCEDURE PERFORMED: EGD w/ biopsy MEDICATIONS: None and Per Anesthesia. TOPICAL ANESTHETIC: none CONSENT: The patient understands the risks and benefits of the procedure and understands that these risks include, but are not limited to: sedation, allergic reaction, infection, perforation and/or bleeding. Alternative means of evaluation and treatment include, among others: physical exam, x-rays, and/or surgical intervention. The patient elects to proceed with this endoscopic procedure. medical equipment was checked for proper function. Hand hygiene and appropriate measures for infection prevention was taken. After the risks, benefits and alternatives of the procedure were thoroughly explained, Informed consent was verified, confirmed and timeout was successfully executed by the treatment team. The patient was anesthetized with topical anesthesia and the [id number]-[id number] (Pedi C) endoscope was introduced through the mouth and advanced to the second portion of the duodenum. Retroflexed views revealed a hiatal hernia The gastroscope was then slowly withdrawn and removed. Gastritis antrum-biopsy Schatzki's ring. ADVERSE EVENTS: There were no complications. IMPRESSIONS: 1. Gastritis antrum-biopsy Schatzki's ring 2. Retroflexed views revealed a hiatal hernia RECOMMENDATIONS: 1. Await biopsy results. Biopsy results will not be ready for 7-10 days. If you don't hear from us in two weeks, call our office for biopsy results. 2. Anti-reflux regimen PATIENT CONDITION: stable DISPOSITION: Inpatient REPEAT EXAM: Return 3 years EGD Maureen Lange MD eSigned: Maureen Lange MD 04/03/2017 2:13 PM cc:
--- NOTE | 2017-04-03 14:21 | GIPROC ---
[facility] [address] [place] [address], [id number] COLONOSCOPY PROCEDURE REPORT EXAM DATE: 04/03/2017 PATIENT NAME: Con Marquez MR #: [id number] BIRTHDATE: 1930 ENDOSCOPIST: Maureen Lange MD ORDER #: [id number] REFLOW OPERATOR: Titus Knight and Socorro Gan STATUS: inpatient INDICATIONS: The patient is a 87 yr old male here for a colonoscopy due to gi bleeding PROCEDURE PERFORMED: Colonoscopy, diagnostic MEDICATIONS: None and Per Anesthesia. PREP QUALITY: fair PREP TYPE:Other: ESTIMATED BLOOD LOSS: None CONSENT: The patient understands the risks and benefits of the procedure and understands that these risks include, but are not limited to: sedation, allergic reaction, infection, perforation and/or bleeding. Alternative means of evaluation and treatment include, among others: physical exam, x-rays, and/or surgical intervention. The patient elects to proceed with this endoscopic procedure. medical equipment was checked for proper function. Hand hygiene and appropriate measures for infection prevention was taken. After the risks, benefits and alternatives of the procedure were thoroughly explained, Informed consent was verified, confirmed and timeout was successfully executed by the treatment team. A digital exam revealed an enlarged prostate The Pentax [id number] endoscope was introduced through the anus and advanced to the cecum, which was identified by both the appendix and ileocecal valve. The instrument was then slowly withdrawn as the colon was fully examined. COLON FINDINGS: Diverticulosis -sigmoid,descending, transverse old blood in sigmoid,descending, non starting midtransverse, suggesting source of bleeding left colon agressive washing done -no active bleeding seen. Retroflexed views revealed internal hemorrhoids and Retroflexed views revealed medium internal hemorrhoids The scope was then completely withdrawn from the patient and the procedure terminated. ADVERSE EVENTS: There were no complications. IMPRESSIONS: 1. Diverticulosis -sigmoid,descending, transverse old blood in sigmoid,descending, non starting midtransverse, suggesting source of bleeding left colon agressive washing done -no active bleeding seen 2. Retroflexed views revealed internal hemorrhoids 3. Retroflexed views revealed medium internal hemorrhoids 4. Revealed an enlarged prostate RECOMMENDATIONS: Clear liquid diet transfuse an aditional unit of blood CTA abdomen/pelvis if active bleeding consult IR for angiogram, source of bleeding most likely left colon-diverticulosis RECALL: Colonoscopy prn Maureen Lange MD eSigned: Maureen Lange MD 04/03/2017 2:20 PM cc:
[2017-04-03] MEDS ORDERED: IOHEXOL 350 MG/ML 10 ML VIAL (for RAD DIAG) IVCONTRAST ONE (16:07)
--- NOTE | 2017-04-03 17:43 | RADRPT ---
EXAM DATE/TIME: 04/03/2017 16:07 [place] COMPARISON: CT ABDOMEN & PELVIS W CONTRAST, March 31, 2017, 15:15. INDICATIONS : GI bleed. Evaluate for aneurysm. IV CONTRAST: 85 cc Omnipaque 350 (iohexol) IV ORAL CONTRAST: No oral contrast ingested. RADIATION DOSE: 18.41 CTDIvol (mGy) MEDICAL HISTORY : Myocardial infarction. Diverticulosis. Hypertension. SURGICAL HISTORY : CABG ENCOUNTER: Initial ACUITY: 1 week PAIN SCALE: 6/10 LOCATION: Left lower quadrant TECHNIQUE: Volumetric scanning was performed using a multi-row detector CT scanner. The data was post processed with a variety of visualization algorithms including full volume maximum intensity projection, multi -planar sliding thin slab reformation, curved planar reformation, and surface rendering techniques. Using automated exposure control and adjustment of the mA and/or kV according to patient size, radiat ion dose was kept as low as reasonably achievable to obtain optimal diagnostic quality images. DICOM format image data is available electronically for review and comparison. FINDINGS: There is moderate atheromatous irregularity and patchy intimal calcification involving abdominal aort a and branch vessels. There is mild aneurysmal dilatation of the distal abdominal aorta to a diameter of 3.6 cm. Tortuosity exaggerated the suspected diameter on the conventional CT examination. There i s no evidence of aortic stenosis or iliac stenosis. 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 The SMA origin is normal. Several centimeters b eyond the vessel origin, the vessel splits into 2 flow channels, one notable for dense concentric lisa cification. The appearance suggests short segment of vessel dissection. Flow beyond this abnormality is intact. The renal arteries are patent bilaterally. The JULIO is patent. No significant iliac inflow stenosis is identified. The common femoral arteries are patent bilaterally. In the visualized proxima l thighs, the right superficial femoral artery occludes. Moderate multifocal stenosis is present in t he visualized proximal left SFA. CONCLUSION: 3.6 cm abdominal aortic aneurysm. 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 No hemorrhagic lesions identified Erasmo Mckeon MD on April 03, 2017 at 17:28 Board Certified Radiologist. This report was verified electronically.
[2017-04-03 21:04] LABS: HEMATOCRIT 27.8 % (39.0-51.0); HEMOGLOBIN 9.3 GM/DL (13.0-17.0)
[2017-04-03] MEDS: TERAZOSIN HCL 5 MG CAP PO SCH (21:39)
[2017-04-03] MEDS: ATORVASTATIN 10 MG TAB PO SCH (21:39)
[2017-04-04] VITALS (8 sets, daily range): BP systolic 84–158; BP diastolic 45–89; PULSE 68–79; RESP 16–20; TEMP 97.2–98.6; O2SAT 94–99
[2017-04-04] MEDS: LOSARTAN 50 MG TAB PO SCH (08:40)
[2017-04-04] MEDS: SODIUM CHLORIDE 0.9% FLUSH 10 ML FLUSH IV FLUSH SCH ×2 (08:40→21:53)
--- NOTE | 2017-04-04 11:53 | HHI.DCPOC ---
Discharge Care Plan Diagnosis: (1) Ischemic colitis (2) AAA (abdominal aortic aneurysm) (3) Lower GI bleed Goals to Promote Your Health * To prevent worsening of your condition and complications * To maintain your health at the optimal level Directions to Meet Your Goals Take your medications as prescribed Follow your dietary instruction Follow activity as directed Keep your appointments as scheduled Take your immunizations and boosters as scheduled If your symptoms worsen call your PCP, if no PCP go to Urgent Care Center or Emergency Room Smoking is Dangerous to Your Health. Avoid second hand smoke Call the 24-hour hour crisis hotline for domestic abuse at Araceli Slaughter MD Apr 04, 2017 11:53
[2017-04-04] MEDS ORDERED: PROT40TA PO (11:57)
--- NOTE | 2017-04-04 11:57 | HHI.DS ---
Discharge Summary Admission Date Apr 02, 2017 at 13:16 Discharge Date: Apr 04, 2017 Admitting Diagnosis lower gi bleed (1) Lower GI bleed ICD Code: K92.2 - Lower GI bleed Status: Acute (2) Hypertension ICD Code: I10 - Hypertension Status: Acute (3) Coronary artery disease ICD Code: I25.10 - Coronary artery disease Status: Acute Procedures Upper and lower endoscopy Brief History - From Admission This patient is a 87-year-old gentleman with bleeding from his rectum which I think intermittent over the last week. He says he has some mild and intermittent left lower quadrant pain and an associated lightheadedness with dizziness. The pain is improved with bowel movements. Patient did come to the emergency room several days ago and had a hemoglobin of over 11 has gone down to 9. Patient is reported to the emergency for further evaluation of this. CBC/BMP: 04/03/17205404/02/17 1155 Significant Findings Laboratory Tests Test 04/02/17 11:55 04/02/17 22:10 04/03/17 05:55 04/03/17 20:55 White Blood Count 3.5 TH/MM3 (4.0-11.0) 2.9 TH/MM3 (4.0-11.0) Red Blood Count 3.17 MIL/MM3 (4.50-5.90) 2.64 MIL/MM3 (4.50-5.90) Hemoglobin 9.4 GM/DL (13.0-17.0) 8.8 GM/DL (13.0-17.0) 7.8 GM/DL (13.0-17.0) 9.3 GM/DL (13.0-17.0) Hematocrit 28.8 % (39.0-51.0) 27.4 % (39.0-51.0) 24.3 % (39.0-51.0) 27.8 % (39.0-51.0) Platelet Count 144 TH/MM3 (150-450) 120 TH/MM3 (150-450) Neutrophils (%) (Auto) 74.0 % (16.0-70.0) Monocytes (%) (Auto) 8.9 % (0.0-8.0) 13.0 % (0.0-8.0) Lymphocytes # (Auto) 0.5 TH/MM3 (1.0-4.8) 0.7 TH/MM3 (1.0-4.8) Blood Urea Nitrogen 28 MG/DL (7-18) Random Glucose 128 MG/DL (74-106) Albumin 3.2 GM/DL (3.4-5.0) Calcium Level 8.4 MG/DL (8.5-10.1) Aspartate Amino Transf (AST/SGOT) 38 U/L (15-37) Estimat Glomerular Filtration Rate 57 ML/MIN (>89) Neutrophils # (Auto) 1.7 TH/MM3 (1.8-7.7) Imaging Last Impressions Abdomen/Pelvis CT 04/03/17 0000 Signed Impressions: Service Date/Time: March 16:07 - CONCLUSION: 3.6 cm abdominal aortic aneurysm. 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 No hemorrhagic lesions identified Erasmo Mckeon MD PE at Discharge GENERAL: This is a well-nourished, well-developed patient, pale CARDIOVASCULAR: Regular rate and rhythm without murmurs, gallops, or rubs. RESPIRATORY: Clear to auscultation. Breath sounds equal bilaterally. No wheezes , rales, or rhonchi. GASTROINTESTINAL: Abdomen soft, non-tender, nondistended. Normal active bowel sounds MUSCULOSKELETAL: Extremities without clubbing, cyanosis, or edema. NEURO: Alert & Oriented x4 to person, place, time, situation. Moves all ext x4 Pt update on day of discharge Patient seen in follow-up for discharge planning. No further bleeding Tolerating diet. Results discussed with patient. He is aware of his AAA and has had surveillance for unknown 3 cm aneurysm in [place]. Hospital Course Patient's 87-year-old gentleman with lower GI bleeding. He did require blood transfusion due to GI acute blood losses. Patient has CT of abdomen pelvis was concerning for ischemic colitis as well as endoscopic findings of diverticulitis and Schatzki's ring, gastritis. Patient is recommended to continue his proton pump inhibitor and follow-up as an outpatient. Continue surveillance of his aortic aneurysm will be maintained by his doctors in [place] (he is following with them already). Pt Condition on Discharge: Good Discharge Disposition: Discharge Home Discharge Time: <= 30 minutes Discharge Instructions DIET: Follow Instructions for: Heart Healthy Diet Activities you can perform: Regular-No Restrictions Follow up Referrals: Gastroenterology - 2 Weeks New Medications: Pantoprazole (Protonix) 40 Mg Tab 40 MG PO DAILY for Reflux, #30 TAB 0 Refills Continued Medications: Aspirin DR (Aspirin EC) 81 Mg Tabdr 81 MG PO DAILY, TAB 0 Refills Cholecalciferol (D3 Super Strength) 2,000 Unit Cap 1000 UNITS PO DAILY for Nutritional Supplement, #30 CAP 0 Refills Ciprofloxacin (Cipro) 500 Mg Tab 500 MG PO BID for Infection for 10 Days, #20 TAB 0 Refills Coenzyme Q10 (Ubidecarenone) (Coq-10) 400 Mg Cap 200 Colchicine (Colcrys) 0.6 Mg Tab 0.6 MG PO BID for Gout, TAB 0 Refills Losartan (Losartan) 100 Mg Tab 100 MG PO DAILY for Blood Pressure Management, #30 TAB 0 Refills Metronidazole (Flagyl) 500 Mg Tab 500 MG PO BID for Infection for 10 Days, #20 TAB 0 Refills Multiple Vitamin (Multiple Vitamin) 1 Tab 1 TAB PO DAILY for Nutritional Supplement, TAB 0 Refills Multiple Vitamins W/ Minerals (Ocuvite) 1 Tab 1 TAB PO DAILY for Nutritional Supplement, TAB 0 Refills Paroxetine HCl (Paxil) 40 Mg Tablet Polyethylene Glycol 3350 Powder (Miralax Powder) 17 Gm Powd 17 GM PO DAILY for Constipation, #1 CAN 3 Refills Mix and dissolve one measuring cap-ful (17 grams) in water or juice. Rosuvastatin (Rosuvastatin) 5 Mg Tab 5 MG PO HS for Cholesterol Management, #30 TAB 0 Refills Terazosin (Terazosin) 5 Mg Cap 5 MG PO HS, #30 CAP 0 Refills Araceli Slaughter MD Apr 04, 2017 11:57
[2017-04-04 14:40] LABS: HEMATOCRIT 27.4 % (39.0-51.0); HEMOGLOBIN 9.1 GM/DL (13.0-17.0)
[2017-04-04] MEDS ORDERED: SODIUM CHLORID 0.9% 500 ML INJ 500 ML IV ONE (16:30)
--- NOTE | 2017-04-04 18:10 | HHI.GIFU ---
GI Follow-up Note Consult Follow-up Subjective: Patient laying in bed comfortably, feeling better.No nausea, vomiting, abdominal pain, no further bleeding . Discussed results with him Objective: PHYSICAL EXAMINATION: Vitals signs stable No fever Vital Signs Date Time Temp Pulse Resp B/P (MAP) Pulse Ox O2 Delivery O2 Flow Rate FiO2 04/04/17 16:05 76 115/59 (77) 04/04/17 16:02 74 116/71 (86) 04/04/17 16:00 98.6 72 20 127/77 (94) 99 04/04/17 14:07 98/59 (72) 92/58 (69) 84/45 (58) 04/04/17 12:00 97.2 71 20 131/66 (87) 96 HEENT: Pupils round and reactive to light; normocephalic; atraumatic; no jaundice. Throat is clear. NECK: Neck is supple, no JVD, no lymphadenopathy. CHEST: Chest is clear to auscultation and percussion. CARDIAC: Regular rate and rhythm with no murmur gallop or rubs. ABDOMEN: Soft, nondistended, nontender; no hepatosplenomegaly; bowel sounds are present in all four quadrants. EXTREMITIES: No clubbing, cyanosis, or edema. SKIN: Normal; no rash; no jaundice. RECEIVING CLERK: No focal deficits; alert and oriented times three. Available Data (labs, X- Rays, Procedues) : Laboratory Tests Test 04/02/17 22:10 04/03/17 05:55 04/03/17 20:55 04/04/17 14:15 Hemoglobin 8.8 GM/DL 7.8 GM/DL 9.3 GM/DL 9.1 GM/DL Hematocrit 27.4 % 24.3 % 27.8 % 27.4 % White Blood Count 2.9 TH/MM3 Red Blood Count 2.64 MIL/MM3 Mean Corpuscular Volume 91.8 FL Mean Corpuscular Hemoglobin 29.6 PG Mean Corpuscular Hemoglobin Concent 32.3 % Red Cell Distribution Width 13.8 % Platelet Count 120 TH/MM3 Mean Platelet Volume 9.1 FL Neutrophils (%) (Auto) 59.5 % Lymphocytes (%) (Auto) 23.7 % Monocytes (%) (Auto) 13.0 % Eosinophils (%) (Auto) 3.0 % Basophils (%) (Auto) 0.8 % Neutrophils # (Auto) 1.7 TH/MM3 Lymphocytes # (Auto) 0.7 TH/MM3 Monocytes # (Auto) 0.4 TH/MM3 Eosinophils # (Auto) 0.1 TH/MM3 Basophils # (Auto) 0.0 TH/MM3 CBC Comment DIFF FINAL Differential Comment ASSESSMENT/PLAN: gi bleeding secondary diverticulosis -resolved anemia secondary gi bleeding sp PRBC abnormal cta -[place] Recommendation ok to dc home from gi point fu office high fiber diet, fiber supplements fu vascular surgery op unless indicated otherwise if remains hospitalized consult in pt gi will sign off call us if further bleeding It was a pleasure seeing Con Marquez. Thank you for this consult. Entered by: Maureen Kraus MD Apr 04, 2017 18:10
[2017-04-04] MEDS: TERAZOSIN HCL 5 MG CAP PO SCH (21:53)
[2017-04-04] MEDS: ATORVASTATIN 10 MG TAB PO SCH (21:53)
[2017-04-05 00:59] VITALS: BP 117/73; PULSE 77; RESP 18; TEMP 98; O2SAT 93
[2017-04-05 07:40] LABS: BASOPHIL % 0.5 % (0.0-2.0); EOSINOPHIL # 0.2 TH/MM3 (0-0.4); EOSINOPHIL % 5.6 % (0.0-4.0); HEMATOCRIT 27.6 % (39.0-51.0); LYMPHOCYTE # 0.9 TH/MM3 (1.0-4.8); MEAN CELL VOLUME 91.2 FL (80.0-100.0); MEAN CORPUSCULAR HEMOGLOBIN 29.8 PG (27.0-34.0); MEAN CORPUSCULAR HGB CONC 32.7 % (32.0-36.0); MEAN PLATELET VOLUME 9.8 FL (7.0-11.0); MONO % 13.5 % (0.0-8.0); MONOCYTE # 0.5 TH/MM3 (0-0.9); NEUT % 55.4 % (16.0-70.0); PLATELET COUNT 122 TH/MM3 (150-450); RED BLOOD COUNT 3.03 MIL/MM3 (4.50-5.90); RED CELL DISTRIBUTION WIDTH 14.6 % (11.6-17.2); WHITE BLOOD COUNT 3.6 TH/MM3 (4.0-11.0)
[2017-04-05 07:45] LABS: BICARBONATE 26.1 MEQ/L (21.0-32.0); CALCIUM 7.8 MG/DL (8.5-10.1)
[2017-04-05 07:58] LABS: CREATININE 0.92 MG/DL (0.60-1.30)
[2017-04-05 08:00] VITALS: BP 161/83; PULSE 71; RESP 18; TEMP 97; O2SAT 98
[2017-04-05] MEDS: SODIUM CHLORIDE 0.9% FLUSH 10 ML FLUSH IV FLUSH SCH ×2 (08:48→21:01)
[2017-04-05] MEDS: LOSARTAN 50 MG TAB PO SCH (08:48)
[2017-04-05 12:00] VITALS: BP 140/77; PULSE 67; RESP 18; TEMP 97.2; O2SAT 97
--- NOTE | 2017-04-05 12:10 | HHI.PR ---
Subjective Remarks Patient seen today after dc held due to dizziness and hypotension Bleeding again in the room GI notified and bleeding scan ordered HG stable Objective Vitals Vital Signs Date Time Temp Pulse Resp B/P (MAP) Pulse Ox O2 Delivery O2 Flow Rate FiO2 04/05/17 08:00 97.0 71 18 161/83 (109) 98 04/05/17 04:02 04/05/17 00:59 98.0 77 18 117/73 (88) 93 04/04/17 21:02 97.9 68 16 135/62 (86) 96 04/04/17 16:05 76 115/59 (77) 04/04/17 16:02 74 116/71 (86) 04/04/17 16:00 98.6 72 20 127/77 (94) 99 04/04/17 14:07 98/59 (72) 92/58 (69) 84/45 (58) I/O 04/04/17 04/04/17 04/04/17 04/05/17 04/05/17 04/05/17 07:00 15:00 23:00 07:00 15:00 23:00 Intake Total 840 ml Output Total 700 ml Balance -700 ml 840 ml Intake Oral 840 ml Output Urine Total 700 ml # Voids 2 3 1 3 # Bowel Movements 0 Result Diagram: 04/05/17 0615 04/05/17 0615 Objective Remarks GENERAL: This is a well-nourished, well-developed patient, pale again CARDIOVASCULAR: Regular rate and rhythm without murmurs, gallops, or rubs. RESPIRATORY: Clear to auscultation. Breath sounds equal bilaterally. No wheezes , rales, or rhonchi. GASTROINTESTINAL: Abdomen soft, non-tender, nondistended. Normal active bowel sounds MUSCULOSKELETAL: Extremities without clubbing, cyanosis, or edema. NEURO: Alert & Oriented x4 to person, place, time, situation. Moves all ext x4 Procedures Upper and lower endoscopy A/P Problem List: (1) Lower GI bleed ICD Code: K92.2 - Lower GI bleed Status: Acute Plan: Appears to be lower GI still bleeding and will need a bleeding scan Hg pending (2) Hypertension ICD Code: I10 - Hypertension Status: Acute Plan: Currently controlled on home medications which we will continue (3) Coronary artery disease ICD Code: I25.10 - Coronary artery disease Status: Acute Plan: Continue home medications Discharge Planning follow up for bleeding Araceli Slaughter MD Apr 05, 2017 12:10
[2017-04-05 17:00] VITALS: BP 161/76; PULSE 67; RESP 18; TEMP 97; O2SAT 97
--- NOTE | 2017-04-05 17:28 | RADRPT ---
EXAM DATE/TIME: 04/05/2017 14:26 [facility] COMPARISON: No previous studies available for comparison. INDICATIONS : Rectal bleeding. DOSE: 21.3 mCi IMAGIN hrs MEDICAL HISTORY : Myocardial infarction. Aneurysm, abdominal. Hypertension. SURGICAL HISTORY : CABG Total knee replacement, left. ENCOUNTER: Initial ACUITY: 1 day PAIN SCALE: 0/10 LOCATION: Bilateral lower quadrant TECHNIQUE: Following the modified in vitro labeling of autologous red cells, dynamic continuous images were acqu ired for the specified interval. FINDINGS: BIODISTRIBUTION: There is a very good labeling of red cells without significant uptake in the gastric wall. There is good delineation of the blood pool of the spleen and abdominal vessels. BLEEDING: No episodes of active GI bleeding are observed during specified interval of continuous observation. CONCLUSION: No active GI bleeding. Santhosh Baez MD on April 05, 2017 at 17:25 Board Certified Radiologist. This report was verified electronically.
[2017-04-05 18:04] LABS: HEMATOCRIT 31.4 % (39.0-51.0); HEMOGLOBIN 10.1 GM/DL (13.0-17.0)
[2017-04-05 20:00] VITALS: BP 131/60; PULSE 73; RESP 20; TEMP 96.1; O2SAT 97
[2017-04-05] MEDS: ATORVASTATIN 10 MG TAB PO SCH (21:01)
[2017-04-05] MEDS: TERAZOSIN HCL 5 MG CAP PO SCH (21:01)
[2017-04-06] VITALS: BP 120/58; PULSE 74; RESP 20; TEMP 97.2; O2SAT 98
[2017-04-06 08:00] VITALS: BP 132/78; PULSE 74; RESP 18; TEMP 97.7; O2SAT 97
[2017-04-06] MEDS: SODIUM CHLORIDE 0.9% FLUSH 10 ML FLUSH IV FLUSH SCH ×2 (08:39→19:40)
[2017-04-06] MEDS: LOSARTAN 50 MG TAB PO SCH (08:39)
--- NOTE | 2017-04-06 09:00 | HHI.PR ---
Subjective Remarks No further bleeding overnight. Patient seen in follow-up. No new complaints, hemoglobin is stable Objective Vitals Vital Signs Date Time Temp Pulse Resp B/P (MAP) Pulse Ox O2 Delivery O2 Flow Rate FiO2 04/06/17 08:00 97.7 74 18 132/78 (96) 97 04/06/17 00:00 97.2 74 20 120/58 (78) 98 04/05/17 20:00 96.1 73 20 131/60 (83) 97 04/05/17 17:00 97.0 67 18 161/76 (104) 97 04/05/17 12:00 97.2 67 18 140/77 (98) 97 I/O 04/05/17 04/05/17 04/05/17 04/06/17 04/06/17 04/06/17 07:00 15:00 23:00 07:00 15:00 23:00 Intake Total 720 ml Balance 720 ml Intake Oral 720 ml # Voids 3 3 # Bowel Movements 0 Result Diagram: 04/05/17 1715 04/05/17 0615 Objective Remarks GENERAL: This is a well-nourished, well-developed patient, pale again CARDIOVASCULAR: Regular rate and rhythm without murmurs, gallops, or rubs. RESPIRATORY: Clear to auscultation. Breath sounds equal bilaterally. No wheezes , rales, or rhonchi. GASTROINTESTINAL: Abdomen soft, non-tender, nondistended. Normal active bowel sounds MUSCULOSKELETAL: Extremities without clubbing, cyanosis, or edema. NEURO: Alert & Oriented x4 to person, place, time, situation. Moves all ext x4 Procedures Upper and lower endoscopy A/P Problem List: (1) Lower GI bleed ICD Code: K92.2 - Lower GI bleed Status: Acute Plan: Appears to be lower GI No further bleeding Bleeding scan negative Hg stable (2) Hypertension ICD Code: I10 - Hypertension Status: Acute Plan: Currently controlled on home medications which we will continue (3) Coronary artery disease ICD Code: I25.10 - Coronary artery disease Status: Acute Plan: Continue home medications Discharge Planning Discharge home Araceli Slaughter MD Apr 06, 2017 09:00
--- NOTE | 2017-04-06 11:46 | HHI.GIFU ---
Subjective Remarks Patient comfortable in bed denies any further bleeding has been tolerating intake Objective Vitals I&O Vital Signs Date Time Temp Pulse Resp B/P (MAP) Pulse Ox O2 Delivery O2 Flow Rate FiO2 04/06/17 08:00 97.7 74 18 132/78 (96) 97 04/06/17 00:00 97.2 74 20 120/58 (78) 98 04/05/17 20:00 96.1 73 20 131/60 (83) 97 04/05/17 17:00 97.0 67 18 161/76 (104) 97 04/05/17 12:00 97.2 67 18 140/77 (98) 97 I/O 04/05/17 04/05/17 04/05/17 04/06/17 04/06/17 04/06/17 07:00 15:00 23:00 07:00 15:00 23:00 Intake Total 720 ml Balance 720 ml Intake Oral 720 ml # Voids 3 3 # Bowel Movements 0 Laboratory Laboratory Tests Test 04/05/17 17:15 Hemoglobin 10.1 Hematocrit 31.4 Imaging Last Impressions GI Bleed Scan Nuclear Medicine 04/05/17 0000 Signed Impressions: Service Date/Time: Wednesday, April 05, 2017 14:26 - CONCLUSION: No active GI bleeding. Santhosh Baez MD Abdomen/Pelvis CT 04/03/17 0000 Signed Impressions: Service Date/Time: March 16:07 - CONCLUSION: 3.6 cm abdominal aortic aneurysm. 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 No hemorrhagic lesions identified Erasmo Mckeon MD Physical Exam HEENT: normocephalic; atraumatic; no jaundice. Throat is clear. NECK: Neck is supple, no JVD, CHEST: Chest is clear to auscultation and percussion. CARDIAC: Regular rate and rhythm with no murmur gallop or rubs. ABDOMEN: Soft, nondistended, nontender; no hepatosplenomegaly; bowel sounds are present in all four quadrants. EXTREMITIES: No clubbing, cyanosis, or edema. SKIN: Normal; no rash; no jaundice. BUSINESS OPERATIONS CONSULTANT: No focal deficits; alert and oriented times three. Assessment and Plan Plan Patient status post GI bleed with resulting anemia found to have diverticulosis he underwent an EGD and a colonoscopy currently he is stable from a GI standpoint no further active bleeding Bleeding scan was negative Hemoglobin going up There was an abnormality noted on CTA and we are awaiting vascular surgery evaluation Not much to add from a GI standpoint Recommend high fiber diet and avoid nuts seeds and popcorn We will sign off Rogerio Escobedo MD Apr 06, 2017 11:46
[2017-04-06 12:00] VITALS: BP 148/74; PULSE 73; RESP 18; TEMP 97.4; O2SAT 96
[2017-04-06 16:00] VITALS: BP 125/65; PULSE 78; RESP 18; TEMP 98.6; O2SAT 97
--- NOTE | 2017-04-06 17:17 | PD.CAR.PN ---
CVT Progress Note Subjective/Hospital Course: Referral received Aortic segment dissection with small AAA Full consult TF Thanks J Objective: Vital Signs Date Time Temp Pulse Resp B/P (MAP) Pulse Ox O2 Delivery O2 Flow Rate FiO2 04/06/17 12:00 97.4 73 18 148/74 (98) 96 04/06/17 08:00 97.7 74 18 132/78 (96) 97 04/06/17 00:00 97.2 74 20 120/58 (78) 98 04/05/17 20:00 96.1 73 20 131/60 (83) 97 Result Diagram: 04/05/17 1715 04/05/17 0615 Bakari Sanchez MD Apr 06, 2017 17:17
[2017-04-06 20:00] VITALS: BP 146/83; PULSE 70; RESP 17; TEMP 96.9; O2SAT 95
[2017-04-06] MEDS: ATORVASTATIN 10 MG TAB PO SCH (20:21)
[2017-04-06] MEDS: TERAZOSIN HCL 5 MG CAP PO SCH (20:21)
[2017-04-07] VITALS: BP 139/87; PULSE 75; RESP 18; TEMP 97.1; O2SAT 96
[2017-04-07 08:00] VITALS: BP 146/74; PULSE 89; RESP 14; TEMP 96.8; O2SAT 98
--- NOTE | 2017-04-07 08:49 | HHI.GIFU ---
Subjective Remarks Patient laying in bed comfortably, deny any's GI bleed, no abdominal pain, overall feeling well Objective Vitals I&O Vital Signs Date Time Temp Pulse Resp B/P (MAP) Pulse Ox O2 Delivery O2 Flow Rate FiO2 04/07/17 00:00 97.1 75 18 139/87 (104) 96 04/06/17 20:00 96.9 70 17 146/83 (104) 95 04/06/17 16:00 98.6 78 18 125/65 (85) 97 04/06/17 12:00 97.4 73 18 148/74 (98) 96 I/O 04/06/17 04/06/17 04/06/17 04/07/17 04/07/17 04/07/17 07:00 15:00 23:00 07:00 15:00 23:00 Intake Total 720 ml 750 ml Balance 720 ml 750 ml Intake Oral 720 ml 750 ml # Voids 3 2 Physical Exam HEENT: normocephalic; atraumatic; no jaundice. Throat is clear. NECK: Neck is supple, no JVD, CHEST: Chest is clear to auscultation and percussion. CARDIAC: Regular rate and rhythm with no murmur gallop or rubs. ABDOMEN: Soft, nondistended, nontender; no hepatosplenomegaly; bowel sounds are present in all four quadrants. EXTREMITIES: No clubbing, cyanosis, or edema. SKIN: Normal; no rash; no jaundice. PROJECT LEADER: No focal deficits; alert and oriented times three. Assessment and Plan Plan Patient status post GI bleed with resulting anemia found to have diverticulosis he underwent an EGD and a colonoscopy currently he is stable from a GI standpoint no further active bleeding Bleeding scan was negative Hemoglobin going up There was an abnormality noted on CTA and we are awaiting vascular surgery evaluation Not much to add from a GI standpoint Recommend high fiber diet and avoid nuts seeds and popcorn 04/08/2017 patient is doing well, no bowel movement so he cannot say if he has any bleeding or not, hemoglobin is stable Patient will need vascular surgeon in [place] Okay to discharge home after that Loretta Enriquez MD Apr 07, 2017 08:49
--- NOTE | 2017-04-07 09:51 | HHI.PR ---
Subjective Remarks Denies cp, sob, n/v/d/c. No abd pain . No diarrhea Feels much better and would like to go home. Objective Vitals Vital Signs Date Time Temp Pulse Resp B/P (MAP) Pulse Ox O2 Delivery O2 Flow Rate FiO2 04/07/17 08:00 96.8 89 14 146/74 (98) 98 04/07/17 00:00 97.1 75 18 139/87 (104) 96 04/06/17 20:00 96.9 70 17 146/83 (104) 95 04/06/17 16:00 98.6 78 18 125/65 (85) 97 04/06/17 12:00 97.4 73 18 148/74 (98) 96 I/O 04/06/17 04/06/17 04/06/17 04/07/17 04/07/17 04/07/17 07:00 15:00 23:00 07:00 15:00 23:00 Intake Total 720 ml 750 ml Balance 720 ml 750 ml Intake Oral 720 ml 750 ml # Voids 3 2 Result Diagram: 04/05/17 1715 04/05/17 0615 Imaging Last Impressions GI Bleed Scan Nuclear Medicine 04/05/17 0000 Signed Impressions: Service Date/Time: Wednesday, April 05, 2017 14:26 - CONCLUSION: No active GI bleeding. Santhosh Baez MD Abdomen/Pelvis CT 04/03/17 0000 Signed Impressions: Service Date/Time: March 16:07 - CONCLUSION: 3.6 cm abdominal aortic aneurysm. 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 No hemorrhagic lesions identified Erasmo Mckeon MD Objective Remarks GENERAL: This is a well-nourished, well-developed patient, pale again CARDIOVASCULAR: Regular rate and rhythm without murmurs, gallops, or rubs. RESPIRATORY: Clear to auscultation. Breath sounds equal bilaterally. No wheezes , rales, or rhonchi. GASTROINTESTINAL: Abdomen soft, non-tender, nondistended. Normal active bowel sounds MUSCULOSKELETAL: Extremities without clubbing, cyanosis, or edema. NEURO: Alert & Oriented x4 to person, place, time, situation. Moves all ext x4 Procedures Upper and lower endoscopy A/P Problem List: (1) Lower GI bleed ICD Code: K92.2 - Lower GI bleed Status: Acute (2) Hypertension ICD Code: I10 - Hypertension Status: Acute (3) Coronary artery disease ICD Code: I25.10 - Coronary artery disease Status: Acute Assessment and Plan (1) Lower GI bleed ICD Code: K92.2 - Lower GI bleed Status: Acute Plan: Appears to be lower GI No further bleeding Bleeding scan negative Hg stable Patient status post GI bleed with resulting anemia found to have diverticulosis he underwent an EGD and a colonoscopy Bleeding scan was negative There was an abnormality noted on CTA and we are awaiting vascular surgery evaluation Not much to add from a GI standpoint High fiber diet and avoid nuts seeds and popcorn Cleared by GI for DC Gen surgery ff (2) Hypertension ICD Code: I10 - Hypertension Status: Acute Plan: Currently controlled on home medications which we will continue (3) Coronary artery disease ICD Code: I25.10 - Coronary artery disease Status: Acute Plan: Continue home medications Discharge Planning Discharge home DC when cleared by vascular surgery Dominga Mcgovern MD Apr 07, 2017 09:51
[2017-04-07] MEDS: LOSARTAN 50 MG TAB PO SCH (10:03)
[2017-04-07] MEDS: SODIUM CHLORIDE 0.9% FLUSH 10 ML FLUSH IV FLUSH SCH (10:07)
[2017-04-07 12:00] VITALS: BP 150/76; PULSE 69; RESP 14; TEMP 96.4; O2SAT 98
[2017-04-07 16:00] VITALS: BP 125/59; PULSE 76; RESP 12; TEMP 96.7; O2SAT 93
--- NOTE | 2017-04-07 18:50 | PD.CAR.PN ---
CVT Progress Note Subjective/Hospital Course: Referral received Aortic segment dissection with small AAA Full consult TF Thanks J 04/07/17 Spoken to the nurse practitioner taking care of the patient at [facility] Received consult yesterday and I can see patient later today. Patient underwent and wants to go home and I do not see any reason not to let him from my point. Patient can follow-up in my office on elective basis With discussed this and at this point I'm going the sign off on the patient and he can go home from my point anytime Objective: Vital Signs Date Time Temp Pulse Resp B/P (MAP) Pulse Ox O2 Delivery O2 Flow Rate FiO2 04/07/17 16:00 96.7 76 12 125/59 (81) 93 04/07/17 12:00 96.4 69 14 150/76 (100) 98 04/07/17 08:00 96.8 89 14 146/74 (98) 98 04/07/17 00:00 97.1 75 18 139/87 (104) 96 04/06/17 20:00 96.9 70 17 146/83 (104) 95 Result Diagram: 04/05/17 1715 04/05/17 0615 Bakari Sanchez MD Apr 07, 2017 18:50
== END 2017-04-07 17:59 | disposition home or self-care (01) | DRG 377 ==
LOC: PHED 11:12 → PHEDA 13:16 → PH3A 14:16 → UNDODISIN 04-06 10:10
PROVIDERS: ADMIT Hospitalist; ATTEND Hospitalist
PROC: 30233N1 Transfusion of Nonautologous Red Blood Cells into Peripheral Vein, Percutaneous Approach (ICD-10-PCS; 2017-04-03)
PROC: 0DB78ZX Excision of Stomach, Pylorus, Via Natural or Artificial Opening Endoscopic, Diagnostic (ICD-10-PCS; principal; 2017-04-03 13:37)
PROC: 0DJD8ZZ Inspection of Lower Intestinal Tract, Via Natural or Artificial Opening Endoscopic (ICD-10-PCS; 2017-04-03 13:37)
DX: K57.31 Diverticulosis of large intestine without perforation or abscess with bleeding (principal); I71.02 Dissection of abdominal aorta; D62 Acute posthemorrhagic anemia; K22.2 Esophageal obstruction; I25.10 Atherosclerotic heart disease of native coronary artery without angina pectoris; I10 Essential (primary) hypertension; K44.9 Diaphragmatic hernia without obstruction or gangrene; E78.5 Hyperlipidemia, unspecified; K64.8 Other hemorrhoids; F43.10 Post-traumatic stress disorder, unspecified; K29.50 Unspecified chronic gastritis without bleeding; N40.0 Benign prostatic hyperplasia without lower urinary tract symptoms; M10.9 Gout, unspecified; H91.93 Unspecified hearing loss, bilateral; F41.9 Anxiety disorder, unspecified; Z87.891 Personal history of nicotine dependence; Z88.1 Allergy status to other antibiotic agents; Z95.1 Presence of aortocoronary bypass graft; Z96.652 Presence of left artificial knee joint
CPT/HCPCS: 36430; 74174; 78278; 80048; 80053; 85014; 85018; 85025; 85610; 85730; 86850; 86900; 86901; 86920; 88305; 88312; A9560; J1940; J7040; J7120; P9016; Q9967